=== PATIENT | male | born 1930 | race Caucasian/White ===

== ENCOUNTER → 2017-02-16 | Outpatient (CLI) | payer MEDICARE ==
[2016-01-29 18:30] VITALS: BP 150/73
[~2017-02-16] MED LIST: ACET-704 PO
--- NOTE | 2017-02-16 10:41 | CARD ---
APPROVED REPORT EXAM: Two-dimensional and M-mode echocardiogram with Doppler and color Doppler. Other Information Quality : Technically Limited Rhythm : PacemakerTechnically limited study due to pectus excavatum. INDICATION Sick sinus syndrome 2D DIMENSIONS RVDd2.6 (2.9-3.5cm)Left Atrium(2D)4.1 (1.6-4.0cm) IVSd1.0 (0.7-1.1cm)Aortic Root(2D)2.9 (2.0-3.7cm) LVDd4.3 (3.9-5.9cm)LVOT Diameter2.3 (1.8-2.4cm) PWd1.0 (0.7-1.1cm)LVDs3.4 (2.5-4.0cm) FS (%) 20.3 %SV33.9 ml Aortic Valve AoV Peak Jad.79.6cm/sAoV VTI16.0cm AO Peak GR.2.5mmHgLVOT Peak Jad.65.7cm/s LVOT VTI 13.75cmAO Mean GR.1mmHg MAYO (VMAX)3.21pg3XAT (VTI)3.43cm2 Mitral Valve MV E Jwunddup89.0cm/sMV DECEL OFKW387mc MV A Vbpdmnuh34.0cm/sMV PIX66jy E/A Ratio2.2MV A Vtaakqqr520tb MVA (PHT)4.58cm2 Pulmonary Valve PV Peak Eonnrpkd22.9cm/sPV Peak Grad.2mmHg Tricuspid Valve TR P. Twbpskgn874mz/sRAP OOVBEHGQ8lnVh TR Peak Gr.34fzFiOKXX30vcQw LEFT VENTRICLE The left ventricle is normal size. There is normal left ventricular wall thickness. Left ventricle sy stolic function is normal. The Ejection Fraction is 50-55%. Abnormal septal motion consistent with pa cemaker activation. The left ventricular diastolic function and filling is normal for age. There is n o ventricular septal defect visualized. RIGHT VENTRICLE The right ventricle is normal size. The right ventricular systolic function is normal. There is a pac emaker lead seen in the right ventricle and atrium. ATRIA The left atrium is borderline dilated. The right atrium size is normal. Interatrial septal defect not ed with left to right shunt on color Doppler. AORTIC VALVE The aortic valve is mildly sclerotic. The aortic valve is trileaflet. Doppler and Color Flow revealed mild aortic regurgitation. There is no significant aortic valvular stenosis. MITRAL VALVE Mitral annular calcification is mild. There is no mitral valve stenosis. Doppler and Color Flow revea led mild mitral regurgitation. TRICUSPID VALVE The tricuspid valve is not well visualized. Doppler and Color Flow revealed mild to moderate tricuspi d regurgitation. The PA pressure was estimated at 56 mmHg. There is no tricuspid valve stenosis. PULMONIC VALVE The pulmonic valve is not well visualized. Doppler and Color Flow revealed no pulmonic valvular regur gitation. There is no pulmonic valvular stenosis. GREAT VESSELS The aortic root is normal in size. Pulmonary vein flow not well visualized. The IVC is normal in size and collapses <50% with inspiration. PERICARDIAL EFFUSION There is no evidence of significant pericardial effusion. Critical Notification Critical Value: No <Conclusion> Left ventricle systolic function is normal. The Ejection Fraction is 50-55%. Abnormal septal motion consistent with pacemaker activation. 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 Mild mitral regurgitation. Mild to moderate tricuspid regurgitation. The PA pressure was estimated at 56 mmHg. There is no evidence of significant pericardial effusion.
== END | disposition home or self-care (01) ==
LOC: ECHO 09:05
PROVIDERS: ATTEND Internal Medicine Cardiovascular Disease
DX: I08.3 Combined rheumatic disorders of mitral, aortic and tricuspid valves (principal); I49.5 Sick sinus syndrome
CPT/HCPCS: 93306

== ENCOUNTER 2017-10-21 11:55 | Emergency (ER) | payer MEDICARE ==
[2017-10-21] MEDS: IBUPROFEN 600 MG TABLET. PO (13:08)
== END 2017-10-21 15:32 | disposition home or self-care (01) ==
LOC: ER 15:32
DX: S51.011A Laceration without foreign body of right elbow, initial encounter (principal); M25.511 Pain in right shoulder; M79.631 Pain in right forearm; I10 Essential (primary) hypertension; E11.9 Type 2 diabetes mellitus without complications; I25.10 Atherosclerotic heart disease of native coronary artery without angina pectoris; Z95.0 Presence of cardiac pacemaker; W18.39XA Other fall on same level, initial encounter; Y93.89 Activity, other specified; Y99.8 Other external cause status; Y92.89 Other specified places as the place of occurrence of the external cause
CPT/HCPCS: 70450; 70486; 73020; 73060; 73080; 73090; 99284-25

== ENCOUNTER → 2018-03-01 | Outpatient (CLI) | payer MEDICARE ==
[2017-10-21 15:28] VITALS: BP 153/70
[~2018-03-01] MED LIST changes: +REGADENOSON 0.4 MG/5 ML DISP.SYRIN. IV ONE
--- NOTE | 2018-03-01 11:50 | RAD ---
MR#: [id number] Date of Study: 03/01/2018 Ordering Physician: ZIA HAN Referring Physician: FAISAL PORTILLO Tech: RT Nazario Forrester) (N) APPROVED REPORT Test Type: Pharmacological Stress Nurse/Tech: Megan Mcintosh RN Test Indications: CAD Cardiac History: Hypertension,pacemaker,diabetes Medications: See Electronic Medical Record Medical History: See Electronic Medical Record Resting ECG: Atrial fibrillation with demand ventricular pacing Resting Heart Rate: 58 bpm Resting Blood Pressure: 170/68mmHg Pretest Chest Pain: No chest pain Nurse/Tech Notes S1,S2 irregular. Left lung base has crackles and right base is diminished. Consent: The procedure was explained to the patient in lay terms. Informed consent was witnessed. Samuel eout was entered into [employer]. History and Stress Test performed by RT Nazario Erickson) (N) Pharm. Details Pharmacologic stress testing was performed using 0.4mg per 5ml of regadenoson given intravenously ove r 7-10 seconds. Stress Symptoms No chest pain or symptoms. POST EXERCISE Reason for Termination: Infusion complete Target HR: No Max Blood Pressure: 180/67mmHg Blood Pressure response to exercise: Normal blood pressure response during stress. Heart Rate response to exercise: WNL Chest Pain: No. Arrhythmia: Yes. Atrial fibrillation ST Change: No. INTERPRETATION Stress EKG Conclusion: Baseline EKG showed atrial fibrillation with demand ventricular pacing. Nondia gnostic changes at peak stress. No other arrhythmias. Imaging Protocol IMAGE PROTOCOL: Rest Tc-99m/stress Tc-99m 1 day Rest: Stress: Viability: Radiopharm.Tc99m EvnhqcyebBz94y Sestamibi Dose11.6mCi 34.6mCi Duration 13.5min. 13.5min. Img Date 03/01/2018 03/01/2018 Inj-Img Xohp20mis. 60min. Rest Admin Site:IV - Right AntecubitalAdministrator:RT Nazario Forrester)(N) Stress Admin Site: IV - Right AntecubitalAdministrator: RT Nazario Erickson)(N) STRESS DATA End Diast. Vol.104.0mlLVEDV index BSA62.0ml End Syst. Vol.27.0mlLVESV index BSA16.0ml Myocardial Ulwr683.0gEject. Dliybbug76.0% Stress Scores Regional WT0.00Summed WT0.00 Regional WM0.00Summed WM1.00 Study quality was good. Left Ventricular size was Normal at Rest and Stress. Lung uptake was . Left Ventricular ejection fraction is 74%. The rest and stress images show normal perfusion, normal contraction and thickening. LV Perf. Quant 17 Seg. SSS0.00 17 Seg. SRS0.00 17 Seg. SDS0.00 Stress Defect Extent (% LAD)0.00Rest Defect Extent (% LAD)0.00Rev. Defect Extent (% LAD)0.00 Stress Defect Extent (% LCX) 0.00Rest Defect Extent (% LCX)0.00Rev. Defect Extent (% LCX)0.00 Stress Defect Extent (% RCA)0.00Rest Defect Extent (% RCA)0.00Rev. Defect Extent (% RCA)0.00 Stress Defect Extent (% THU)0.00Rest Defect Extent (% THU)0.00Rev. Defect Extent (% THU)0.00 Conclusion 1. Regadenoson cardioisotope stress test did not show any evidence of ischemia or infarct. 2. Normal left ventricular systolic function with ejection fraction calculated at 74%. 3. Low risk for cardiac events. Signed by : Zia Han, Electronically Approved : 03/01/2018 11:49:35
== END | disposition home or self-care (01) ==
LOC: NM 08:26
PROVIDERS: ATTEND Internal Medicine Cardiovascular Disease
DX: I25.10 Atherosclerotic heart disease of native coronary artery without angina pectoris (principal); I10 Essential (primary) hypertension; E11.9 Type 2 diabetes mellitus without complications; I48.91 Unspecified atrial fibrillation
CPT/HCPCS: 78452; 93017; 96374; 96375; 96376; A9500; J2785

== ENCOUNTER → 2018-03-10 | Outpatient (CLI) | payer MEDICARE ==
[2017-10-21 15:28] VITALS: BP 153/70
[~2018-03-10] MED LIST changes: -REGADENOSON 0.4 MG/5 ML DISP.SYRIN. IV ONE
--- NOTE | 2018-03-13 09:24 | RAD ---
MR#: [id number] Date of Study: 03/10/2018 Ordering Physician: ZIA HAN, Referring Physician: ZIA HAN Tech: Jaimee Diaz RDMS RVT APPROVED REPORT Patient Location: OUT-PATIENT Laterality:Bilateral Indications CAD Doppler Spectral Velocity Analysis Right Left mCCA 93/8 cm/smCCA 84/9 cm/s ECA 119/ cm/sECA 141/ cm/s pICA 62/13 cm/spICA 66/10 cm/s Clint 67/10 cm/smICA 67/12 cm/s dICA 85/16 cm/sdICA 56/18 cm/s ICA/CCA 0.91ICA/CCA 0.80 Findings Grayscale images of the bilateral carotid vessels demonstrates mild diffuse catheters carotid plaque with minimal intimal hyperplasia. Most of the plaque is localized to the carotid bifurcations. Spectral waveforms and color Doppler of the bilateral internal and external carotid vessels do not re veal any evidence of high-grade stenosis. Bilateral vertebral velocities are antegrade. Critical Notification Critical Value: No <Conclusion> No focal high-grade stenosis. Signed by : Kimani Garcia, Electronically Approved : 03/13/2018 09:23:24
== END | disposition home or self-care (01) ==
LOC: US 11:34
PROVIDERS: ATTEND Internal Medicine Cardiovascular Disease
DX: I25.10 Atherosclerotic heart disease of native coronary artery without angina pectoris (principal); I65.23 Occlusion and stenosis of bilateral carotid arteries; I77.3 Arterial fibromuscular dysplasia
CPT/HCPCS: 93880